=== PATIENT | female | born 1945 | race Caucasian/White ===

== ENCOUNTER 2017-07-02 09:29 | Emergency (ER) | payer MEDICARE, OTHER ==
[~2017-07-02] VITALS: Ht 160 cm; Wt 86.2 kg
[2017-07-02 09:38] VITALS: BP_SYST 123
--- NOTE | 2017-07-02 09:45 | NUR ---
Patient to ER bed 4 to gown for evaluation. Side rails up. Report given to ALEE DANIELSON.
--- NOTE | 2017-07-02 09:50 | NUR ---
ER Dr. Perez at bedside examining patient.
--- NOTE | 2017-07-02 09:52 | NUR ---
Pt presents to ER c/o LL leg pain x 3 days. Pt states pain is 10/10 and radiates to L foot. Pt reports BP this morning was 194/50 and took BP med. Pt states history of DM, HTN. Pt denies N/V/D. No acute distress noted. AOX4.
[2017-07-02] MEDS ORDERED: ONDANSETRON HCL 4 MG/2 ML VIAL IVP ONE (10:15)
[2017-07-02] MEDS ORDERED: HYDROmorphone 1 MG INJ. 1 MG/ML AMPUL IVP ONE (10:15)
--- NOTE | 2017-07-02 10:30 | NUR ---
# 20 gauge angiocath placed to LAC. Use of asceptic technique. Opsite placed over site. Blood return noted. . Flushed with 10 cc of normal saline. No evidence of infiltration noted. Patient tolerated well.
--- NOTE | 2017-07-02 10:40 | NUR ---
Pt medicated tolerated well. Will continue to monitor.
--- NOTE | 2017-07-02 11:15 | NUR ---
Pt reports pain continuing to resolve 09/30.
--- NOTE | 2017-07-02 12:00 | NUR ---
Pt refuses crutches that were ordered by Dr. Perez. Pt states that she has assistive devices at home for use.
[2017-07-02 12:15] VITALS: BP_SYST 99
--- NOTE | 2017-07-02 12:15 | NUR ---
Patient given written and verbal discharge instructions and verbalizes understanding. ER MD discussed with patient the results and treatment provided. Patient in stable condition. ID arm band removed. IV catheter removed intact and dressing applied, no active bleeding. Rx of Flexeril, [place], Zofran given. Patient educated on pain management and to follow up with PMD. Pain Scale 2/10. Opportunity for questions provided and answered.
== END 2017-07-02 12:15 | disposition home or self-care (01) ==
LOC: SED 09:29
DX: M54.32 Sciatica, left side (principal); Z88.6 Allergy status to analgesic agent; Z88.5 Allergy status to narcotic agent
CPT/HCPCS: 96374; 96375; 99284; J1170; J2405

== ENCOUNTER 2021-07-25 17:38 | Emergency (ER) | payer MEDICARE, SELFPAY ==
[~2021-07-25] VITALS: Ht 160 cm; Wt 90.7 kg
[2021-07-25 18:05] VITALS: BP_SYST 154
--- NOTE | 2021-07-25 18:05 | NUR ---
Pt. came in because she has not felt well for 3 days with cough, GLOVER, scratchy throat, and today checked BP and it was elevated at home so she was concerned
--- NOTE | 2021-07-25 18:33 | NUR ---
covid swab sent
--- NOTE | 2021-07-25 18:52 | NUR ---
ER in tent examining patient.
[2021-07-25 19:13] LABS: BASOPHILS % (AUTO) 0.8 % (0.0-2.0); EOSINOPHILS # (AUTO) 0.2 K/uL (0.0-0.4); EOSINOPHILS % (AUTO) 3.3 % (0.0-4.0); HEMATOCRIT 34.5 % (36-48); HEMOGLOBIN 11.6 g/dL (12.0-16.0); LYMPHOCYTES # (AUTO) 1.3 K/uL (1.0-5.5); LYMPHOCYTES % (AUTO) 25.3 % (20.5-51.5); MEAN CORPUSCULAR HEMOGLOBIN 31 pg (27-31); MEAN CORPUSCULAR HGB CONC 34 % (32-36); MEAN CORPUSCULAR VOLUME 91 fL (79.0-98.0); MONOCYTES # (AUTO) 0.8 K/uL (0.0-1.0); MONOCYTES % (AUTO) 15.3 % (1.7-9.3); NEUTROPHILS # (AUTO) 2.9 K/uL (1.8-7.7); NEUTROPHILS % (AUTO) 55.3 % (40.0-70.0); PLATELET COUNT (AUTO) 230 K/uL (130-430); RED BLOOD CELL COUNT(AUTO) 3.78 MIL/uL (4.2-6.2); RED CELL DISTRIBUTION WIDTH 13.2 % (9.0-15.0); WHITE BLOOD COUNT (AUTO) 5.3 K/uL (4.8-10.8)
[2021-07-25 19:36] LABS: ANION GAP 5 (5-15); CALCIUM 8.8 mg/dL (8.4-11.0); CHLORIDE 105 mmol/L (98-107); CREATININE 0.81 mg/dL (0.55-1.30); GLUCOSE 104 mg/dL (70-99); SODIUM SERUM 136 mmol/L (136-145); UREA NITROGEN, BLOOD 19 mg/dL (8-21)
[2021-07-25 19:46] LABS: ALANINE AMINOTRANSFERASE 26 U/L (12-78); ALBUMIN 3.3 g/dL (3.4-4.8); ASPARTATE AMINOTRANSFERASE 19 U/L (10-37); TOTAL BILIRUBIN 0.4 mg/dL (0.0-1.0)
[2021-07-25 21:10] VITALS: BP_SYST 152
--- NOTE | 2021-07-25 21:10 | NUR ---
Patient given written and verbal discharge instructions and verbalizes understanding. ER MD discussed with patient the results and treatment provided. Patient in stable condition. ID arm band removed. No Rx given. Patient educated on pain management and to follow up with PMD. Pain Scale 0/10. Opportunity for questions provided and answered.
== END 2021-07-25 21:10 | disposition home or self-care (01) ==
LOC: SED 17:38
DX: I16.0 Hypertensive urgency (principal); I10 Essential (primary) hypertension; E11.9 Type 2 diabetes mellitus without complications; Z88.1 Allergy status to other antibiotic agents; Z88.5 Allergy status to narcotic agent; Z20.822 Contact with and (suspected) exposure to COVID-19
CPT/HCPCS: 36415; 71045; 80053; 83880; 84484; 85025; 93005; 99285